=== PATIENT | female | born 1970 | race Caucasian/White ===

== ENCOUNTER 2017-01-06 06:02 | Inpatient (IN) | payer MEDICARE, MEDICAID ==
[~2017-01-06] VITALS: Ht 157.5 cm; Wt 156.3 kg
--- NOTE | ~2017-01-06 | DS ---
PATIENT'S NAME: AYESHA [facility] AGE: 46 Y [address] ROOM: [place] [address] LOCATION: GPCU ADMIT DATE: 01/06/2017 Discharge Summary DISCHARGE DATE: 01/10/2017 FAMILY PHYSICIAN: Wesly Stubbs MD ATTENDING PHYSICIAN: Wesly Stubbs BRIEF HISTORY: This is a patient who is well known to the primary service of [facility]. She was just not feeling well and was subsequently admitted to the hospital for presumed sepsis with a focus coming from lower extremity diabetic ulcer/osteomyelitis. The patient also has a history of Methicillin-resistant Staphylococcus aureus. The patient was started on Zosyn and vancomycin. The patient also had a pancreatic mass, which would be biopsied before discharge. The patient had a consultation with Vascular Surgery, who recommended right second toe amputation and possible first toe amputation based on clinical presentation and inability to heal. Next hospital day, the patient had an ultrasound of thyroid and ultimately had biopsy of the nodule as well. Right second toe amputation was planned and completed. The patient remained on IV antibiotics for the next couple of days. The patient was able to get up and around without weightbearing to the right lower extremity. The patient also had a pancreatic mass biopsied before discharge. DISCHARGE DIAGNOSES: 1. Sepsis secondary to osteomyelitis of the right second toe. 2. Type 2 diabetes. 3. Morbid obesity. 4. History of Methicillin-resistant Staphylococcus aureus. 5. Thyroid mass with biopsy. 6. Pancreatic mass with biopsy. PLAN: Discharged home on partial weightbearing to the right lower extremity. Back on her home medications include; 1. Hydrochlorothiazide. 2. Crestor. 3. Cetirizine. 4. Insulin glargine. 5. Humalog sliding scale. 6. Lisinopril. 7. Albuterol. 8. Venlafaxine. 9. Tylenol. 10. Carvedilol. 11. Zyvox. Follow up with Dr. Stubbs in a few days time for hospital followup as well PATIENT'S NAME: AYESHA [facility] AGE: 46 Y [address] ROOM: [address] [address] LOCATION: GPCU ADMIT DATE: 01/06/2017 Discharge Summary DISCHARGE DATE: 01/10/2017 FAMILY PHYSICIAN: Wesly Stubbs MD ATTENDING PHYSICIAN: Wesly Stubbs as to follow up on biopsy reports from CT-guided biopsy of the pancreatic mass and ultrasound-guided biopsy of thyroid nodule. MD CARMELA MIKEP/modl /[id number] d: 01/28/171826 t: 02/09/171818, DISCHARGE SUMMARY
--- NOTE | ~2017-01-06 | ER ---
PATIENT'S NAME: [facility] AGE: 46 Y [address] ROOM: [place] [address] LOCATION: GPCU ADMIT DATE: 01/06/2017 ER/Outpatient Report DISCHARGE DATE: FAMILY PHYSICIAN: Wesly Stubbs MD ATTENDING PHYSICIAN: Wesly Stubbs Time of Arrival: 0602 hours. Time of Evaluation: 0605 hours. CHIEF COMPLAINT: Abdominal pain. HISTORY OF PRESENT ILLNESS: The patient is a 46-year-old female who presents to the emergency department today with a chief complaint of abdominal pain. She reports she has had subjective fevers and chills over the past 2 days. She reports it has progressively worsened. She reports she feels like she got hit by a [employer] truck. She also complains of this midepigastric and right upper quadrant abdominal pain. She reports she had an episode similar about 2 weeks ago and then came back, it is currently 8/10 in severity. She has had nausea and vomiting as well as some diarrhea. Over the past 24 hours, she has had one episode of vomiting and small amount of diarrhea. Denies any blood in stool. No dark tarry stools. This is a dull achy type pain. Currently 8/10 in severity. Denies any urinary frequency, urgency, or painful urination. Denies any constipation. The patient does have a known history of osteomyelitis and is scheduled to undergo MRI later this week. She reports she just does not feel right at this time. PAST MEDICAL HISTORY: Osteomyelitis of right 2nd toe, insulin-dependent diabetes mellitus, pancreatic mass, hypertension, depression, dyslipidemia neuropathy, chronic back pain. PAST SURGICAL HISTORY: , panniculectomy, tonsillectomy, endometrial ablation, hysterectomy, tubal ligation. SOCIAL HISTORY: The patient denies any tobacco, alcohol, or illicit drug use. ALLERGIES: TO WELLBUTRIN, DARVOCET, LIPITOR, TRAZODONE. MEDICATIONS: Please see list. PATIENT'S NAME: [facility] AGE: 46 Y [address] ROOM: [place] [address] LOCATION: GPCU ADMIT DATE: 01/06/2017 ER/Outpatient Report DISCHARGE DATE: FAMILY PHYSICIAN: Wesly Stubbs MD ATTENDING PHYSICIAN: Wesly Stubbs PRIMARY CARE DOCTOR: Wesly Stubbs MD. REVIEW OF SYSTEMS: All systems are reviewed by myself and are negative with the exception of those discussed in HPI and past medical history. PHYSICAL EXAMINATION: VITAL SIGNS: Weight 148.7 kg, blood pressure 141/68, pulse 120, respiratory rate 22, temperature 98.6, oxygen saturation 96% on room air. GENERAL: The patient is a 46-year-old female, appears stated age, obese, in no acute distress. HEENT: Head normocephalic and atraumatic. Pupils are equal, round, and reactive to light and accommodating. Mucous membranes are moist. NECK: Supple. There is no nuchal rigidity. CARDIOVASCULAR: Tachycardic. No murmurs, rubs, or gallops. LUNGS: Clear to auscultation bilaterally. No wheezes, rales, or rhonchi. ABDOMEN: Soft. Mild midepigastric and right upper quadrant tenderness to palpation. No rebound, rigidity, or guarding. Positive bowel sounds. MUSCULOSKELETAL: The patient moves all 4 extremities. She does have some mild erythema noted to the 1st and 2nd digit of the right foot. No other bony tenderness. SKIN: Warm and dry. LABORATORY DATA AND X-RAYS: Labs and x-rays are obtained. CBC is remarkable for white blood cell count 13.8, ANC is 10.8, otherwise unremarkable. Venous blood gas, 7.40/38/63/25/- 1.1. Lactate 2.4. Coags are normal. D-dimer is 0.73. Procalcitonin 0.12. CMP unremarkable except for a glucose of 202, alkaline phosphatase and LFTs are normal. Lipase is normal. Cardiac enzymes are normal. CRP is 1.35, proBNP is 2084. ESR 39. CT scan of the chest, PE study is obtained. There is no evidence of PE. There is mild ground-glass lung opacity. Abdomen does show mild prominent proximal small bowel loops may reflect low-grade partial obstruction or enteritis. There is a chronic pancreatic mass likely benign, but has grown, with recommendations for consideration of biopsy under CT guidance if indicated. X-ray of the right foot is obtained is interpreted by the radiologist. It does show findings of septic joint with adjacent osteomyelitis at the interphalangeal joint of the great toe. There are findings of osteomyelitis of 2nd toe with progression of the bone destruction since prior imaging. IMPRESSION: 1. Acute on chronic osteomyelitis. 2. Sepsis due to #1. PATIENT'S NAME: [facility]U [facility] AGE: 46 Y [address] ROOM: [place] [address] LOCATION: GPCU ADMIT DATE: 01/06/2017 ER/Outpatient Report DISCHARGE DATE: FAMILY PHYSICIAN: Wesly Stubbs MD ATTENDING PHYSICIAN: Wesly Stubbs 3. Chronic pancreatic mass. 4. Dilated loops of small bowel. Partial small bowel obstruction versus enteritis. 5. Nausea and vomiting. 6. Diarrhea. 7. Initial visit. EMERGENCY DEPARTMENT COURSE: The patient brought back to the examination room. Seen and evaluated by myself. IV is established. Laboratory analysis, imaging, labs are obtained as described above. The patient is given a liter of normal saline 4 mg of Zofran as well as 1 g of Tylenol. I have discussed the results with the patient. She reports she does not feel significantly improved at this time. With the patient's osteomyelitis and evidence of sepsis, we did elect to initiate Zosyn 4.5 g IV as well as vancomycin 2 g IV. I have contacted Dr. Mckeon, who is on-call for the patient's primary care doctor, Dr. Stubbs. She does agree to accept the patient for further evaluation, treatment, and management in the hospital. DISPOSITION: The patient is admitted under the care of Dr. Mckeon in stable condition indication. DO JONO PERERA/modl /[id number] d: 01/06/17 1344 t: 01/11/17 0814, OUTPATIENT REPORT
--- NOTE | ~2017-01-06 | OR ---
PATIENT'S NAME: JU HODGE [facility] AGE: 46 Y [address] ROOM: [address] [address] [facility] AD[facility] DATE: 01/06/2017 OR/Procedure Report DISCHARGE DATE: FAMILY PHYSICIAN: Wesly Stubbs MD ATTENDING PHYSICIAN: Wesly Stubbs SURGEON: Guillermo Hernandez MD JOINT CLEANING MACHINE OPERATOR: DATE OF PROCEDURE: 01/07/2017 PREOPERATIVE DIAGNOSIS: Osteomyelitis of right second toe. POSTOPERATIVE DIAGNOSIS: Osteomyelitis of right second toe. PROCEDURE: Right second toe amputation. INSPECTOR WATCH TRAIN: TONY Castro. ANESTHESIA: General. ESTIMATED BLOOD LOSS: 20 mL. OPERATIVE FINDINGS: Second toe resected until clean healthy bone was found. DESCRIPTION OF PROCEDURE: The patient was brought to the operating room, placed under general anesthesia, prepped and draped in a sterile manner. Preoperative time-out was performed. The patient had been receiving routine antibiotics on the floor. We made a base of toe circular incision, transected down to the bone, transected the bone with a bone cutter. We then used a rongeur to nibble back the bone on the metatarsal head until we found solid firm feeling bone that appeared healthy. We then copiously irrigated the wound. We sent bone for culture as well as the toe for micro and gross. We then reapproximated the deep layers with Vicryl, skin was closed with interrupted nylon. The patient tolerated the procedure well, transferred to recovery room and back to the floor later that day. GUILLERMO HERNANDEZ MD FKM/modl /[id number] d: 01/07/172000 t: 01/08/17 1254, OPERATIVE SUMMARY
--- NOTE | ~2017-01-06 | HP ---
PATIENT'S NAME: GRETCHEN [facility] AGE: 46 Y [address] ROOM: [id number] [place], [place] [address] LOCATION: GPCU ADMIT DATE: 01/06/2017 History & Physical DISCHARGE DATE: FAMILY PHYSICIAN: Wesly Stubbs MD ATTENDING PHYSICIAN: Wesly Stubbs DATE OF SERVICE: CHIEF COMPLAINT: "I am sick." HISTORY OF PRESENT ILLNESS: Gretchen is a 46-year-old female, who began vomiting on 01/01/2017, at about 06:30 in the morning. She was then fine on 01/02/2017. She felt a little bit queasy to her stomach on 01/03/2017 and 01/04/2017, and then she started feeling really terrible yesterday and started vomiting again this morning about 06:30 in the morning. She has also got severe midepigastric pain radiating to her right side and occasionally through to her back. She rates it a "14" out of 10. This morning, since she has been done throwing up, she has actually been feeling a little bit better. She has also had fever and shaking chills since yesterday. She denies any sore throat, runny nose, head congestion, or cough. She did have a little bit of slight diarrhea this morning, but had 3 normal bowel movements last evening. No blood or black colored stools. She is passing gas. She was short of breath this morning as she had an asthma attack. No urinary symptoms. No rashes. Although, she does have a right great and second toe, she does have osteomyelitis and was scheduled to see Dr. Hernandez between this illness occurred, so she canceled that appointment. She is diabetic and is on large doses of insulin with much better glucose control. She is usually 140 to 160. It was not unusual for her to have sugars in the 400 to 500 range prior to getting good control. She does have a history of MRSA with several infections including osteomyelitis of her toe and infection in the panniculectomy site and 2 other sites in the past. PRIOR OPERATIONS: Include a panniculectomy in June 2014. Adenoidectomy. Tonsillectomy. Hysterectomy due to heavy bleeding, prior to that she had a and a tubal ligation. Endometrial ablation prior to that as well. ILLNESSES: Adult onset diabetes mellitus, depressive disorder, gastroesophageal reflux, hyperlipidemia, microalbuminuria, diabetic neuropathy as well as morbid obesity, and personal history of MRSA. CURRENT MEDICATIONS: PATIENT'S NAME: GRETCHEN [facility] AGE: 46 Y [address] ROOM: [place] [address] [facility] AD[facility] DATE: 01/06/2017 History & Physical DISCHARGE DATE: FAMILY PHYSICIAN: Wsely Stubbs MD ATTENDING PHYSICIAN: Wesly Stubbs 1. She is on Crestor 5 mg daily. 2. She has an EpiPen just in case as she is exposed to bees or wasps. 3. Humalog 45 units prior to each meal. 4. Hydrochlorothiazide 25 mg daily as needed for edema. 5. Lantus 61 units twice daily subcutaneously. 6. Lisinopril 40 mg daily. 7. Metformin 1000 mg b.i.d. 8. Omeprazole 20 mg daily as needed. 9. ProAir HFA 2 puffs twice daily as needed. 10. Venlafaxine extended release 150 mg daily. 11. Zyrtec 10 mg daily. ALLERGIES: BEES AND WASPS. TRAZODONE CAUSES A RASH. OTHER INTOLERANCES INCLUDE DARVOCET, LIPITOR, WELLBUTRIN, VICTOZA, AND ZOCOR. FAMILY HISTORY: Positive for cancer in her mother, she had reproductive organ cancer also in maternal aunt. Maternal grandmother with lung cancer. Paternal grandmother with skin cancer. Another paternal aunt with of cancer of unknown origin. Mother and grandfather with coronary artery disease. Father, grandfather, and mother with diabetes. SOCIAL HISTORY: She is a nonsmoker, rarely drinks alcohol. She has not been employed since she fractured her back. 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 She denies any illegal drug use. She is sedentary. Her immunizations are up-to-date. Her last Pneumovax was in July 2014 and influenza on July 24, 2016. She has had a hep B series. REVIEW OF SYSTEMS: GENERAL: She has had fever and shaking chills. ENT: Negative. CARDIOVASCULAR: Negative. RESPIRATORY: Negative other than she had an asthma attack this morning, had used her inhaler. GI: See HPI. : Negative. MUSCULOSKELETAL: She has osteomyelitis of the right first and second toe. DERM: Negative other than prior history of MRSA. NEURO: She has numbness and tingling in the left foot due to diabetic neuropathy. PSYCH: History of depression, which is stable. PATIENT'S NAME: GRETCHEN [facility] AGE: 46 Y [address] ROOM: [address] [address] LOCATION: GPCU ADMIT DATE: 01/06/2017 History & Physical DISCHARGE DATE: FAMILY PHYSICIAN: eWsly Stubbs MD ATTENDING PHYSICIAN: Wesly Stubbs PHYSICAL EXAMINATION: GENERAL: Gretchen is a well-developed, well-nourished, 46-year-old female. She is alert, cooperative, and gives an excellent history. VITAL SIGNS: Her vital signs are stable. Pulse is 111, respiratory rate 22, O2 saturation 97% on room air, weight 148.7 kg or 327 pounds, and height 5 feet and 2 inches. ENT: Pupils are equal and reactive. Extraocular muscles are intact. Oropharynx is unremarkable. NECK: Supple without masses or thyromegaly. HEART: Regular rate and rhythm without murmurs. LUNGS: Lung sounds are clear throughout. ABDOMEN: Obese. She is tender diffusely especially in the midline and to the right at the midline, both right lower quadrant and right upper quadrant and midepigastric. Left side not so tender. EXTREMITIES: Reveal 1+ pitting edema over the blas. The feet and ankles showed no pitting. Pulses are diminished. Her right second toe is red and swollen. The right great toe is also red and swollen compared to the other side. LABORATORY WORK: Her ABG shows a pH of 7.40, pCO2 of 38, pO2 of 63, and O2 saturation 92%. Lactate is elevated at 2.4. D-dimer is elevated at 0.73. Sodium 142, potassium 4.5, glucose 202, BUN 23, and creatinine 0.9. GFR greater than 60. Liver enzymes are all within normal limits. Procalcitonin elevated at 0.12. White count 13,800, hemoglobin 11.0, and platelets are 216,000. She has a left shift with 78% neutrophils. Sedimentation rate is elevated at 39. PT and PTT are normal. IMAGING: CT of the chest with PE protocol shows no evidence of pulmonary emboli. CT of the abdomen does reveal a pancreatic mass, which is enlarged compared to 2005. It has grown roughly a centimeter it is now 6 cm x 6 cm. There is prominent proximal small bowel loops, which may be a partial obstruction or ileus. CT of the chest reveals no evidence of any PE. There is a mild ground glass lung opacity, most often seen with small airway disease or bronchitis. Chest x-ray was clear. X-ray of the right foot does reveal changes consistent with osteomyelitis and septic joint at the interphalangeal joint of the great toe. ASSESSMENT: 1. Sepsis syndrome with fever, shaking chills, elevated white count, elevated procalcitonin, and elevated lactate. 2. Insulin-dependent diabetes mellitus with insulin resistance. 3. History of Methicillin-resistant Staphylococcus aureus. 4. Morbid obesity. 5. History of gastroesophageal reflux disease. PATIENT'S NAME: GRETCHEN [facility] AGE: 46 Y [address] ROOM: [place] [address] [facility] ADMIT DATE: 01/06/2017 History & Physical DISCHARGE DATE: FAMILY PHYSICIAN: Wesly Stubbs MD ATTENDING PHYSICIAN: Wesly Stubbs 6. Hyperlipidemia. 7. Diabetic neuropathy. 8. Microalbuminuria. 9. Pancreatic mass. 10. Ileus versus partial bowel obstruction. PLAN: We will admit her, keep her n.p.o., and give her bowel rest. Use Zofran as needed for nausea. Continue home medications, but use lower doses of insulin since she is n.p.o. Accu-Cheks q.i.d. She is being covered with IV Zosyn and IV vancomycin. We will have pharmacy give recommendations on dosages. She does wish to be a full code at this time. Dr. Stubbs will assume care in the morning. She may be a candidate for a CT-guided needle biopsy of the pancreas once her infectious symptoms are calm down. Dr. Hernandez will see regarding the right foot. She will likely need amputation of the first and second toes. Prognosis is fair. She understands the implication of current ongoing illnesses. MD SPENCER HINTON/modl /[id number] D: [id number] T: [id number] HISTORY & PHYSICAL
[2017-01-06 06:59] LABS: BASOPHIL % 0.2 %; BICARBONATE 23.5 mmol/L (18.0-23.0); EOSINOPHIL # 0.2 K/uL (0.0-0.5); EOSINOPHIL % 1.2 %; HEMATOCRIT 36.7 % (33.0-46.0); IMMATURE GRANULOCYTE # 0.1 K/uL (0.0-0.3); IMMATURE GRANULOCYTE % 0.9 %; LACTATE 2.4 mEq/L (0.50-1.60); LYMPHOCYTE # 1.6 K/uL (0.8-4.0); LYMPHOCYTE % 11.5 %; MCH 22.4 pg (27.0-34.0); MCV 74.9 fl (83.0-98.0); MONOCYTE # 1.1 K/uL (0.0-1.0); MONOCYTE % 7.7 %; MPV 10.3 fl (9.4-12.4); NEUTROPHIL # (ANC) 10.8 K/uL (1.8-7.8); NEUTROPHIL % 78.5 %; NRBC % 0 /100WBC (0-0.00); PCO2 38 mmHg (35-45); PLATELET COUNT 216 K/uL (150-450); PO2 63 mmHg (80-90); RDW-CV 18.2 % (11.9-14.6); WBC 13.8 K/uL (4.0-11.0)
[2017-01-06 07:07] LABS: INR - (THERAPEUTIC) 0.92 (0.92-1.07); PROTIME 9.7 SECONDS (9.8-11.4); PTT 25 SECONDS (25-32)
[2017-01-06 07:19] LABS: ALBUMIN 2.1 gm/dL (3.5-5.0); ALK PHOS 82 IU/L (33-138); ALT 16 IU/L (12-78); ANION GAP 13.5 (10.0-19.0); AST 9 IU/L (10-40); BLOOD UREA NITROGEN 23 mg/dL (6-24); CHLORIDE 110 mMol/L (96-110); CO2 23 mMol/L (22-32); CPK 58 IU/L (21-215); CREATININE 0.9 mg/dL (0.5-1.1); ESTIMATED GFR (MDRD EQUATION) > 60; POTASSIUM 4.5 mMol/L (3.7-5.1); SODIUM 142 mMol/L (135-145); TOTAL BILIRUBIN 0.2 mg/dL (0.0-1.5)
[2017-01-06 07:25] LABS: CALCIUM 7.1 mg/dL (8.5-10.5)
--- NOTE | 2017-01-06 11:55 | NUR ---
PT is 46 y/o female admit for osteomylitis R great toe and 2nd toe for . Allergies to Darvocet,trazedone,wellbutrin,statins,bees. Red and yellow bracelets on. Alert and oriented x3. Hx htn,hypercholest,asthma, bronchitis,SOB,gerd,heartburn,diarrhea-this am,RA,joint stiffness, DM,depression, anxiety,urgency/frequency,leaking/dribbling. Hx MRSA. No open wounds currently.
[2017-01-06] MEDS ORDERED: ROSUVASTATIN CAL5 MG PO ×2 (12:37→12:42)
[2017-01-06] MEDS ORDERED: GLUCOPHAGE1000 MG PO (12:37)
[2017-01-06] MEDS ORDERED: HYDRODIURIL25 MG PO (12:37)
[2017-01-06] MEDS ORDERED: ZYRTEC10 MG PO (12:42)
[2017-01-06] MEDS ORDERED: LANTUS SOL100 UNIT/1 SUB-Q (12:43)
[2017-01-06] MEDS ORDERED: LISINOPRIL40 MG PO (12:44)
[2017-01-06] MEDS ORDERED: HUMALOG100 UNIT/3 SUB-Q (12:44)
[2017-01-06] MEDS ORDERED: EFFEXOR XR150 MG PO (12:45)
[2017-01-06] MEDS ORDERED: EPIPEN 2-P0.3 MG/0.3 IM (12:45)
[2017-01-06] MEDS ORDERED: PROVENTIL OR V6.7 GM INH (12:45)
[2017-01-06] MEDS ORDERED: TYLENOL ARTHRI650 MG PO (12:46)
[2017-01-06] MEDS ORDERED: ALEVE220 MG PO (12:47)
--- NOTE | 2017-01-06 17:07 | NUR ---
Significant Event: ADMIT TO PCU FROM THE ER AT 1130, HAD A SMALL 100 ML EMESIS WHEN ARRIVED TO THE FLOOR BUT HAS NOT HAD ANYMORE T/O REST OF THE SHIFT. IV ABX AND IVF'S CONTINUE. TYLENOL X1 FOR TEMP OF 100.0 AND HEADACHE, WITH RELIEF. MRI OF RT)FOOT DONE THIS AFTERNOON. DR. SCHWARZ CONSULTED FOR RT)FOOT OSTEOMYELITIS; TO BE NPO P MN FOR AMPUTATION OF RT)2ND TOE AND POSSIBLY 1ST TOE. REPOSITIONS SELF FREQUENTLY. Follow up: CONTINUE PLAN OF CARE; OR TMRW.
--- NOTE | 2017-01-07 04:44 | NUR ---
Significant event: A/O x 3. Up in room with minimal assist. right great toe and 2nd toe are swollen and cold to the touch. elevated when in bed. Permits signed for surgery to amputate 2nd toe and possibly 1st toe if need be this am. Do not have a time for that yet thought. Been NPO since midnight. Has NS runnig at 100ml/hr in right hand and intermittent antibiotics as well. Gave tylenol at hs for headache with relief noted.
[2017-01-07 05:32] LABS: BASOPHIL % 0.4 %; EOSINOPHIL % 0.2 %; HEMATOCRIT 33.3 % (33.0-46.0); HEMOGLOBIN 9.8 g/dL (10.0-15.0); IMMATURE GRANULOCYTE # 0.1 K/uL (0.0-0.3); IMMATURE GRANULOCYTE % 1.4 %; LYMPHOCYTE # 1.4 K/uL (0.8-4.0); LYMPHOCYTE % 17.1 %; MCH 22.5 pg (27.0-34.0); MCHC 29.4 gm/dL (32.0-36.5); MCV 76.4 fl (83.0-98.0); MONOCYTE # 0.6 K/uL (0.0-1.0); MONOCYTE % 7.3 %; MPV 10.5 fl (9.4-12.4); NEUTROPHIL # (ANC) 6.1 K/uL (1.8-7.8); NEUTROPHIL % 73.6 %; NRBC % 0 /100WBC (0-0.00); PLATELET COUNT 192 K/uL (150-450); RBC 4.36 M/uL (3.50-5.50); RDW-CV 18.2 % (11.9-14.6); WBC 8.3 K/uL (4.0-11.0)
--- NOTE | 2017-01-07 15:04 | NUR ---
Attempted to see pt x2 out of room.
[2017-01-07 16:31] LABS: BASOPHIL % 0.3 %; EOSINOPHIL % 0.4 %; HEMATOCRIT 32.6 % (33.0-46.0); HEMOGLOBIN 9.7 g/dL (10.0-15.0); IMMATURE GRANULOCYTE # 0.1 K/uL (0.0-0.3); IMMATURE GRANULOCYTE % 0.9 %; LYMPHOCYTE # 1.9 K/uL (0.8-4.0); MCH 22.6 pg (27.0-34.0); MCHC 29.8 gm/dL (32.0-36.5); MONOCYTE # 0.9 K/uL (0.0-1.0); MONOCYTE % 8.2 %; MPV 10.2 fl (9.4-12.4); NEUTROPHIL # (ANC) 8.2 K/uL (1.8-7.8); NEUTROPHIL % 73.2 %; NRBC % 0 /100WBC (0-0.00); PLATELET COUNT 201 K/uL (150-450); RBC 4.29 M/uL (3.50-5.50); RDW-CV 18.3 % (11.9-14.6); WBC 11.2 K/uL (4.0-11.0)
[2017-01-07 16:44] LABS: ANION GAP 14.2 (10.0-19.0); POTASSIUM 4.2 mMol/L (3.7-5.1)
[2017-01-07 16:45] LABS: CALCIUM 7.1 mg/dL (8.5-10.5)
--- NOTE | 2017-01-07 16:51 | NUR ---
Significant Event:VSS AFEBRILE. HR'S 90'S TO 100'S. BP'S 140'S TO 180'S. ON RA IN THE 90'S. DENIES PAIN BUT GOT 2 NORCO IN PACU. UP TO PCU AT 1542. 2ND TOE ON RT FOOT AMP. KERLEX WRAPPED AROUND IT. NO WEIGHT BEARING TO RT SIDE FRONT FOOT. TO COMMODE HAD 400ML UOP. Follow up:
[2017-01-08 03:33] LABS: BASOPHIL % 0.4 %; EOSINOPHIL # 0.1 K/uL (0.0-0.5); EOSINOPHIL % 0.8 %; HEMATOCRIT 31.7 % (33.0-46.0); HEMOGLOBIN 9.2 g/dL (10.0-15.0); IMMATURE GRANULOCYTE # 0.1 K/uL (0.0-0.3); LYMPHOCYTE # 2.1 K/uL (0.8-4.0); MCH 22.3 pg (27.0-34.0); MCV 76.9 fl (83.0-98.0); MONOCYTE # 0.8 K/uL (0.0-1.0); MONOCYTE % 8.9 %; MPV 10.7 fl (9.4-12.4); NEUTROPHIL % 65.9 %; NRBC % 0 /100WBC (0-0.00); PLATELET COUNT 196 K/uL (150-450); RBC 4.12 M/uL (3.50-5.50); RDW-CV 18.4 % (11.9-14.6); WBC 9.1 K/uL (4.0-11.0)
--- NOTE | 2017-01-08 03:35 | NUR ---
Pt a/o and pleasant. VSS on RA, afbrile. Random 170 sbp this am. Pt cedrick pain. Will monitor. Given 2 tylenol at hs as her arthritis apap is not here- pt request. She states she does have some tingling in R pinky toe but other htompson no complaints. Dressing to R ft with some shadow drainage. Can HEEL touch on R foot only. Uses bsc. IV to LAC for IV vanco/zosyn. Q6 accuchecks- 228 at hs. 1 bm tonight. Plan: change accuchecks to achs?
[2017-01-08 03:48] LABS: ANION GAP 10.5 (10.0-19.0); POTASSIUM 4.5 mMol/L (3.7-5.1)
[2017-01-08 03:53] LABS: CALCIUM 7.3 mg/dL (8.5-10.5)
--- NOTE | 2017-01-08 17:29 | NUR ---
Significant Event:VSS AFEBRILE. HR'S 90'S TO 100'S. BP'S 180'S TO 200'S. DR EPPERSON AWARE STARTED COREG AND HYDROCHLOROTHIAZIDE. ON RA IN THE 90'S. DENIES PAIN TO RT FOOT. BIOPSY TO PANCREASE TODAY THROUGH UPPER LFT QUAD. TRANSPARENT DRESSING WITH BLOODY DRAINAGE. IV ANTBX. Follow up:
--- NOTE | 2017-01-09 03:20 | NUR ---
Pt a/o x4. SBP remains in 180's post starting coreg and hctz yesterday. States she has minimal to no pain at this time. ACHS- 307 at hs. Could benefit to increase her levemir dosage. All other vss, on RA. Kerlex on her R foot changed as it fell off. Did not remove the gauze/dressing that was directly over the incision where her 2nd toe should be. BM x1-semi formed/loose. Con't on IV zosyn/vanco to LAC. Plan: Needs orders for full dressing change.
[2017-01-09 08:47] LABS: BASOPHIL % 0.4 %; EOSINOPHIL # 0.1 K/uL (0.0-0.5); EOSINOPHIL % 1.5 %; HEMOGLOBIN 9.9 g/dL (10.0-15.0); IMMATURE GRANULOCYTE # 0.2 K/uL (0.0-0.3); IMMATURE GRANULOCYTE % 1.6 %; LYMPHOCYTE # 2.1 K/uL (0.8-4.0); LYMPHOCYTE % 22.1 %; MCH 22.4 pg (27.0-34.0); MCV 74.8 fl (83.0-98.0); MONOCYTE # 0.7 K/uL (0.0-1.0); MONOCYTE % 7.8 %; MPV 10.3 fl (9.4-12.4); NEUTROPHIL # (ANC) 6.4 K/uL (1.8-7.8); NEUTROPHIL % 66.6 %; NRBC % 0 /100WBC (0-0.00); PLATELET COUNT 181 K/uL (150-450); RBC 4.41 M/uL (3.50-5.50); RDW-CV 18.2 % (11.9-14.6); WBC 9.5 K/uL (4.0-11.0)
[2017-01-09 08:59] LABS: ANION GAP 15.9 (10.0-19.0); BLOOD UREA NITROGEN 13 mg/dL (6-24); CALCIUM 8.1 mg/dL (8.5-10.5); CHLORIDE 112 mMol/L (96-110); CO2 21 mMol/L (22-32); CREATININE 0.9 mg/dL (0.5-1.1); ESTIMATED GFR (MDRD EQUATION) > 60; SODIUM 144 mMol/L (135-145)
[2017-01-09 09:00] LABS: POTASSIUM 4.9 mMol/L (3.7-5.1)
--- NOTE | 2017-01-09 17:30 | NUR ---
Significant Event: SBP 150-170'S WITH COREG DOSE INCREASED TO 6.25MG BID. HR 80'S. AFEBRILE. ON RA. TYLENOL GIVEN THIS AFTERNOON FOR HEADACHE WITH TOTAL RELIEF NOTED. ORDERS TO HAVE DAILY DRESSING CHANGES TO 2ND TOE AMP SITE WITH DRY GAUZE. REMOVED AND CHANGED BY BINH FERNANDEZ. IV ATB CONTINUED VIA L) AC PIV. AMBULATES 1PA PIVOT TRANSFERS TO BATHROOM. HEEL TOUCH ONLY TO RIGHT FOOT. ORTHO SHOE UNABLE TO ATTEND FROM . REBECCA AWARE AND RN WILL OBTAIN TOMORROW. ACHS ACCUCHECKS WITH AGGRESSIVE SSI. RENETTA INCREASED THIS AM TO 44 UNITS. Follow up: HEEL TOUCH ONLY TO RIGHT FOOT WITH PIVOT TRANSFERS TO BATHROOM. CONT IV ATB. POSSIBLE DC SOON.
[2017-01-10 04:20] LABS: BASOPHIL # 0.1 K/uL (0.0-0.2); BASOPHIL % 0.6 %; EOSINOPHIL # 0.2 K/uL (0.0-0.5); EOSINOPHIL % 2.5 %; HEMATOCRIT 30.3 % (33.0-46.0); HEMOGLOBIN 9.1 g/dL (10.0-15.0); IMMATURE GRANULOCYTE # 0.1 K/uL (0.0-0.3); IMMATURE GRANULOCYTE % 1.2 %; LYMPHOCYTE % 24.5 %; MCH 22.8 pg (27.0-34.0); MCV 75.9 fl (83.0-98.0); MONOCYTE # 0.7 K/uL (0.0-1.0); MONOCYTE % 8.6 %; MPV 10.1 fl (9.4-12.4); NEUTROPHIL # (ANC) 5.1 K/uL (1.8-7.8); NEUTROPHIL % 62.6 %; NRBC % 0 /100WBC (0-0.00); PLATELET COUNT 185 K/uL (150-450); RBC 3.99 M/uL (3.50-5.50); WBC 8.1 K/uL (4.0-11.0)
--- NOTE | 2017-01-10 05:22 | NUR ---
Significant Event: Patient is alert/oriented x3. Vital signs stable. Continues on room air. Denies any pain. Right foot is covered with gauze, CSM WNL; daily dressing changes. Patient continues on IV antibiotics. Can only bear weight on right heel, full weight-bearing on left foot. Patient gets around very well with use of wheelchair. Follow up: Might be ok to dismiss today if she can go home on oral antibiotics.
[2017-01-10] MEDS ORDERED: COREG6.25 MG PO (15:10)
[2017-01-10] MEDS ORDERED: HYDRODIURIL12.5 MG PO (15:10)
[2017-01-10] MEDS ORDERED: ZYVOX600 MG PO (15:36)
--- NOTE | 2017-01-10 17:48 | NUR ---
PATIENT GIVEN WRITTEN DISMISSAL INSTRUCTIONS INCLUDING NEW HOME MEDICATION LIST WITH INFORMATION ON NEW MEDICATIONS, PRESCRIPTIONS, FOLLOW-UP APPOINTMENT TIMES, WEIGHT BEARING RESTRICTION TO RIGHT FOOT AND DRY DRESSING CHANGES DAILY AND PRN, WELL DIET RESTRICTIONS. PATIENT VERBALLY STATES UNDERSTANDING OF INFORMATION DISCUSSED WITH RN. PIV REMOVED FROM L) AC WITH GAUZE AND COBAN APPLIED. PATIENT DRESSED AND TAKEN TO FRONT OF [facility] VIA WHEELCHAIR ACCOMPANIED BY RN, SON AND BELONGINGS WELL A POST-OP SHOE AT 1735.
== END 2017-01-10 17:40 | disposition disaster alternative care site (69) | DRG 854 ==
LOC: GMED 06:02 → GPCU 11:04
PROVIDERS: Emergency Medicine; Obstetrics & Gynecology Obstetrics; Surgery Vascular Surgery; ADMIT Family Medicine
PROC: 0Y6R0Z0 Detachment at Right 2nd Toe, Complete, Open Approach (ICD-10-PCS; principal; 2017-01-07)
PROC: 0FBG3ZX Excision of Pancreas, Percutaneous Approach, Diagnostic (ICD-10-PCS; 2017-01-08)
DX: A41.9 Sepsis, unspecified organism (principal); K56.60 Unspecified intestinal obstruction; E11.40 Type 2 diabetes mellitus with diabetic neuropathy, unspecified; M86.171 Other acute osteomyelitis, right ankle and foot; M86.671 Other chronic osteomyelitis, right ankle and foot; F32.9 Major depressive disorder, single episode, unspecified; K21.9 Gastro-esophageal reflux disease without esophagitis; G89.29 Other chronic pain; M54.9 Dorsalgia, unspecified; E78.5 Hyperlipidemia, unspecified; F41.9 Anxiety disorder, unspecified; E66.01 Morbid (severe) obesity due to excess calories; J45.998 Other asthma; R35.0 Frequency of micturition; E11.69 Type 2 diabetes mellitus with other specified complication; K86.9 Disease of pancreas, unspecified; Z86.14 Personal history of Methicillin resistant Staphylococcus aureus infection; Z79.84 Long term (current) use of oral hypoglycemic drugs; Z82.49 Family history of ischemic heart disease and other diseases of the circulatory system; Z79.4 Long term (current) use of insulin
CPT/HCPCS: C9113; J0690; J2001; J2405; J2543; J3010; J3370; J7030; J7040; J7050; Q9967

== ENCOUNTER → 2017-02-24 | Outpatient (CLI) | payer MEDICARE, MEDICAID ==
[~2017-02-24] MED LIST: ALEVE220 MG PO; COREG6.25 MG PO; EFFEXOR XR150 MG PO; EPIPEN 2-P0.3 MG/0.3 IM; GLUCOPHAGE1000 MG PO; HUMALOG100 UNIT/3 SUB-Q; HYDRODIURIL12.5 MG PO; HYDRODIURIL25 MG PO; LANTUS SOL100 UNIT/1 SUB-Q; LISINOPRIL40 MG PO; PROVENTIL OR V6.7 GM INH; ROSUVASTATIN CAL5 MG PO; TYLENOL ARTHRI650 MG PO; ZYRTEC10 MG PO; ZYVOX600 MG PO
== END | disposition disaster alternative care site (69) ==
LOC: LKCL 17:25
DX: E04.1 Nontoxic single thyroid nodule (principal)